=== PATIENT | male | born 1980 | race Caucasian/White ===

== ENCOUNTER 2017-09-28 18:05 | Emergency (ER) | payer SELFPAY ==
[~2017-09-28] VITALS: Ht 177.8 cm; Wt 70.5 kg
[~2017-09-28 18:05] MED LIST: PERCOCET 10/3251 TA1 PO
[2017-09-28 18:30] VITALS: BP 142/111; Ht 177.8 cm; Wt 70.5 kg
[2017-09-28] MEDS ORDERED: VIBRAMYCIN 100100 MG PO (22:27)
[2017-09-28] MEDS ORDERED: VOLTAREN75 MG PO (22:27)
== END 2017-09-28 22:43 | disposition home or self-care (01) ==
LOC: D.ER 18:05
DX: L03.114 Cellulitis of left upper limb (principal); G35 Multiple sclerosis; F17.200 Nicotine dependence, unspecified, uncomplicated

== ENCOUNTER 2019-03-01 07:50 | Emergency (ER) | payer SELFPAY ==
[~2019-03-01] VITALS: Ht 177.8 cm; Wt 79.5 kg
[~2019-03-01 07:50] MED LIST changes: +VIBRAMYCIN 100100 MG PO; +VOLTAREN75 MG PO
[2019-03-01 07:55] VITALS: Ht 177.8 cm; Wt 79.5 kg
[2019-03-01 08:20] LABS: BASOPHILS 0.2 % (0-2); EOSINOPHILS 0.6 % (0-7); HEMATOCRIT 44.6 % (42.0-54.0); HEMOGLOBIN 15.2 g/dL (13.5-17.5); IMMATURE GRANULOCYTES 0.3 % (0-5); LYMPHOCYTES 24.2 % (15-50); MCH 34.1 pg (26.0-34.0); MCHC 34.1 g/dL (31.0-37.0); MEAN PLATELET VOLUME 9.6 fL (7.4-10.4); MONOCYTES 8.5 % (2-11); NEUTROPHILS 66.2 % (40-80); PLATELET COUNT 163 10x3/uL (130-400); RBC 4.46 10x6/uL (4.20-6.10); RDW 13.2 % (11.5-14.5); WBC 6.5 10x3/uL (4.8-10.8)
[2019-03-01 08:22] LABS: APPEARANCE CLEAR (CLEAR); BILIRUBIN NEGATIVE (NEGATIVE); COLOR YELLOW (YELLOW); GLUCOSE 1000 mg/dL (NEGATIVE); KETONE MODERATE mg/dL (NEGATIVE); NITRITE NEGATIVE (NEGATIVE); PROTEIN 2+ mg/dL (NEGATIVE); SPECIFIC GRAVITY 1.015 (1.005-1.020); UROBILINOGEN NORMAL (NORMAL)
[2019-03-01 08:26] LABS: BACTERIA FEW /hpf (NEGATIVE); EPITHELIAL CELLS NSEEN /hpf (0-5); RED CELLS - URINE 0-5 /hpf (0-5); WHITE CELLS - URINE 0-5 /hpf (NEGATIVE)
[2019-03-01 08:27] LABS: UDS - AMPHET NEGATIVE QUAL (NEGATIVE); UDS - BARB NEGATIVE QUAL (NEGATIVE); UDS - BENZO POSITIVE QUAL (NEGATIVE); UDS - COCAINE NEGATIVE QUAL (NEGATIVE); UDS - OPIATE NEGATIVE QUAL (NEGATIVE); UDS - PCP NEGATIVE QUAL (NEGATIVE); UDS - THC POSITIVE QUAL (NEGATIVE)
[2019-03-01 08:36] LABS: CALC OSMOLALITY 278 mosm/kg (275-300); CALCIUM 9.4 mg/dL (8.5-10.1); CARBON DIOXIDE 23.9 mmol/L (21.0-32.0); CHLORIDE - SERUM 99 mmol/L (98-107); CREATININE - SERUM 0.8 mg/dL (0.6-1.3); POTASSIUM - SERUM 4.2 mmol/L (3.5-5.1); SODIUM 137 mmol/L (136-145); UREA NITROGEN 6 mg/dL (7-18); eGFR NON AFRICAN AMERICAN > 90 mL/min (90-120)
[2019-03-01 08:44] LABS: ALBUMIN 3.6 g/dL (3.4-5.0); ALKALINE PHOSPHATASE 171 U/L (46-116); ALT (SGPT) 235 U/L (10-68); BILIRUBIN - TOTAL 0.94 mg/dL (0.2-1.3); GLUCOSE 231 mg/dL (74-106); MAGNESIUM - SERUM 1.5 mg/dL (1.8-2.4); PROTEIN - SERUM 8.3 g/dL (6.4-8.2)
[2019-03-01] MEDS ORDERED: DILANTIN100 MG PO (10:01)
[2019-03-01] MEDS ORDERED: GLUCOTROL XL 5 M5 MG PO (10:01)
[2019-03-01 10:21] VITALS: BP 134/91
== END 2019-03-01 10:22 | disposition home or self-care (01) ==
LOC: D.ER 07:50
PROVIDERS: Emergency Medicine
DX: G40.89 Other seizures (principal); F10.20 Alcohol dependence, uncomplicated; K74.60 Unspecified cirrhosis of liver; R73.9 Hyperglycemia, unspecified; E83.42 Hypomagnesemia; G35 Multiple sclerosis